=== PATIENT | female | born 2000 | race American Indian/Alaskan Native ===

== ENCOUNTER 2020-03-09 17:13 | Emergency (ER) | payer OTHER ==
[2020-03-09 17:20] VITALS: BP 133/76
--- NOTE | 2020-03-09 17:36 | Event Note ---
ED Screening Note Date of service: 03/09/20 Time: 17:36 ED Screening Note: Patient complains of chest pain or shortness of breath States and here from urgent care This initial assessment/diagnostic orders/clinical plan/treatment(s) is/are subject to change based on patients health status, clinical progression and re- assessment by fellow clinical providers in the ED. Further treatment and workup at subsequent clinical providers discretion. Patient/guardian urged not to elope from the ED as their condition may be serious if not clinically assessed and managed. Initial orders include: Chest x-ray EKG Lab
[2020-03-09 18:17] LABS: Basophils # (Auto) 0.1 K/mm3 (0.0-0.1); Basophils % (Auto) 0.5 % (0.0-1.8); Eosinophils # (Auto) 0.4 K/mm3 (0.0-0.4); Eosinophils % (Auto) 4.2 % (0.0-4.3); Hematocrit 34.8 % (30.3-42.9); Hemoglobin 11.4 gm/dl (10.1-14.3); Lymphocytes # (Auto) 3.1 K/mm3 (1.2-5.4); Lymphocytes % (Auto) 32.9 % (13.4-35.0); Mean Corpuscular HGB Conc 33 % (30-34); Mean Corpuscular Volume 80 fl (79-97); Monocytes # (Auto) 0.4 K/mm3 (0.0-0.8); Monocytes % (Auto) 4.5 % (0.0-7.3); Platelet Count 253 K/mm3 (140-440); Red Blood Count 4.36 M/mm3 (3.65-5.03); Red Cell Distribution Width 15.8 % (13.2-15.2)
[2020-03-09 18:41] LABS: Alanine Aminotransferase 9 units/L (7-56); Albumin 3.8 g/dL (3.9-5); Blood Urea Nitrogen 7 mg/dL (7-17); Hemolysis Index 2
[2020-03-09 18:43] LABS: BUN/Creatinine Ratio 10
--- NOTE | 2020-03-09 19:31 | XRay Report ---
CHEST 2 VIEWS INDICATION / CLINICAL INFORMATION: Chest pain. COMPARISON: None available. FINDINGS: SUPPORT DEVICES: None. HEART / MEDIASTINUM: No significant abnormality. LUNGS / PLEURA: No significant pulmonary or pleural abnormality. No pneumothorax. ADDITIONAL FINDINGS: No significant additional findings. IMPRESSION: 1. No acute findings. Signer Name: Austin Rice MD Signed: 03/09/2020 7:27 PM Workstation Name: [id number]
--- NOTE | 2020-03-09 21:26 | Emergency Department Report ---
ED General Adult HPI - General Chief complaint: Chest Pain Stated complaint: CHEST PAIN/ADNORMAL EKG Time Seen by Provider: 03/09/20 21:09 Source: patient Mode of arrival: Ambulatory Limitations: No Limitations - History of Present Illness Initial comments: Pt is a 20 y/o aaf who presents for cp x this am, described as soreness 3/10 exacerbated by movement and palpation. pt has hx of seasonal allergies, states sore throat 2 days ago , now with post nasal drip, pt denies fever or chills, denies smoking, there is no dizziness, no lightheadedness, no sob, no cough, or wheezing, pt is tolerating po intake, LMP: 1 week ago. Severity scale (0 -10): 3 - Related Data Previous Rx's Medication Instructions Recorded Last Taken Type Cetirizine HCl [ZyrTEC 10mg cap] 10 mg PO DAILY #30 capsule 03/09/20 Unknown Rx Naproxen 500 mg PO BID PRN #30 tablet 03/09/20 Unknown Rx Allergies Allergy/AdvReac Type Severity Reaction Status Date / Time Penicillins Allergy Unknown Verified 03/09/20 17:18 ED Review of Systems ROS: Stated complaint: CHEST PAIN/ADNORMAL EKG Other details as noted in HPI Constitutional: denies: chills, fever Eyes: denies: eye pain, eye discharge, vision change ENT: denies: ear pain, throat pain Respiratory: denies: cough, shortness of breath, wheezing Cardiovascular: chest pain. denies: palpitations, orthopnea Endocrine: no symptoms reported Gastrointestinal: denies: abdominal pain, nausea, diarrhea Genitourinary: denies: urgency, dysuria, discharge Musculoskeletal: denies: back pain, joint swelling, arthralgia Skin: denies: rash, lesions Neurological: denies: headache, weakness, paresthesias Psychiatric: denies: anxiety, depression Hematological/Lymphatic: denies: easy bleeding, easy bruising ED Past Medical Hx - Past Medical History Previous Medical History?: No - Surgical History Past Surgical History?: No - Medications Home Medications: Home Medications Medication Instructions Recorded Confirmed Last Taken Type Cetirizine HCl [ZyrTEC 10mg cap] 10 mg PO DAILY #30 capsule 03/09/20 Unknown Rx Naproxen 500 mg PO BID PRN #30 tablet 03/09/20 Unknown Rx ED Physical Exam - General Limitations: No Limitations General appearance: alert, in no apparent distress - Head Head exam: Present: atraumatic, normocephalic - Eye Eye exam: Present: normal appearance, EOMI Pupils: Present: normal accommodation - ENT ENT exam: Present: normal orophraynx, mucous membranes moist, TM's normal bilaterally, normal external ear exam - Neck Neck exam: Present: normal inspection, full ROM. Absent: tenderness, lymphade nopathy - Respiratory Respiratory exam: Present: normal lung sounds bilaterally, chest wall tenderness (anterior chest wall tenderness sternal no ecchymosis, no crepitus, no stepoff ). Absent: respiratory distress, wheezes, stridor (mid) - Cardiovascular Cardiovascular Exam: Present: regular rate, normal rhythm, normal heart sounds. Absent: systolic murmur, diastolic murmur, rubs, gallop - GI/Abdominal GI/Abdominal exam: Present: soft, normal bowel sounds. Absent: distended, tenderness - Rectal Rectal exam: Present: deferred - Extremities Exam Extremities exam: Present: normal inspection, full ROM, normal capillary refill. Absent: tenderness - Back Exam Back exam: Present: normal inspection, full ROM. Absent: tenderness, CVA tenderness (R), CVA tenderness (L) - Neurological Exam Neurological exam: Present: alert, oriented X3, CN II-XII intact, normal gait - Psychiatric Psychiatric exam: Present: normal affect, normal mood - Skin Skin exam: Present: warm, dry, intact, normal color. Absent: rash ED Course Vital Signs 03/09/20 17:18 Temperature 97.8 F Pulse Rate 83 Respiratory 18 Rate Blood Pressure 133/76 [Right] O2 Sat by Pulse 97 Oximetry ED Medical Decision Making - Lab Data Result diagrams: 03/09/20 17:59 03/09/20 17:59 Labs 03/09/20 03/09/20 03/09/20 17:59 17:59 17:59 WBC 9.5 RBC 4.36 Hgb 11.4 Hct 34.8 MCV 80 MCH 26 L MCHC 33 RDW 15.8 H Plt Count 253 Lymph % (Auto) 32.9 Pershing % (Auto) 4.5 Eos % (Auto) 4.2 Baso % (Auto) 0.5 Lymph # (Auto) 3.1 Pershing # (Auto) 0.4 Eos # (Auto) 0.4 Baso # (Auto) 0.1 Seg Neutrophils % 57.9 Seg Neutrophils # 5.5 Sodium 140 Potassium 4.0 Chloride 106.2 Carbon Dioxide 22 Anion Gap 16 BUN 7 Creatinine 0.7 Estimated GFR > 60 BUN/Creatinine Ratio 10 Glucose 86 Calcium 9.0 Total Bilirubin 0.20 AST 15 ALT 9 Alkaline Phosphatase 102 Troponin T < 0.010 Total Protein 7.6 Albumin 3.8 L Albumin/Globulin Ratio 1.0 HCG, Qual Negative - EKG Data EKG shows normal: sinus rhythm Rate: normal - EKG Data When compared to previous EKG there are: previous EKG unavailable Interpretation: normal EKG (NSR, no STEMI, interp by ed attending) - Radiology Data Radiology results: report reviewed, image reviewed Findings Reporting MD: Austin Rice Dictation Time: March 09, 2020 18:27 Fur Floor Worker: Not available Pipeline Dispatcher Date: CHEST 2 VIEWS INDICATION / CLINICAL INFORMATION: Chest pain. COMPARISON: None available. FINDINGS: SUPPORT DEVICES: None. HEART / MEDIASTINUM: No significant abnormality. LUNGS / PLEURA: No significant pulmonary or pleural abnormality. No pneumothorax. ADDITIONAL FINDINGS: No significant additional findings. IMPRESSION: 1. No acute findings. Signer Name: Austin Rice MD Signed: 03/09/2020 6:27 PM Workstation Name: [id number] - Medical Decision Making Chest x-ray normal no opacities no infiltrates, EKG normal no ST elevated VT EKG interpreted by ED attending. Chest pain is reproducible to deep palpation. Patient states pain is now 1/10 declines NSAIDs, states she is ready to go home. This is musculoskeletal pain. URI symptoms are mild. Patient will be DC'd home continue [id number] Zyrtec, NSAIDs as needed as needed. Patient will follow with primary care doctor in 2 to 3 days. Patient verbalizes agreement and understanding of discharge plan. Patient DC'd home in stable condition at this time. Critical care attestation.: If time is entered above; I have spent that time in minutes in the direct care of this critically ill patient, excluding procedure time. ED Disposition Clinical Impression: Chest pain Qualifiers: Chest pain type: unspecified Qualified Code(s): R07.9 - Chest pain, unspecified Disposition: DC-01 TO HOME OR SELFCARE Is pt being admited?: No Does the pt Need Aspirin: No Condition: Stable Instructions: Chest Pain (ED) Prescriptions: Naproxen 500 mg PO BID PRN #30 tablet PRN Reason: pain Cetirizine HCl [ZyrTEC 10mg cap] 10 mg PO DAILY #30 capsule Referrals: TIM PADILLA [Primary Care Provider] - 3-5 Days Forms: Work/School Release Form(ED) Time of Disposition: 21:32
== END 2020-03-09 21:35 | disposition home or self-care (01) ==
LOC: ED 17:13
DX: R07.89 Other chest pain (principal); Z79.899 Other long term (current) drug therapy; Z88.0 Allergy status to penicillin
CPT/HCPCS: 36415; 71046; 80053; 84484; 84703; 85025; 93005